=== PATIENT | male | born 1945 | race Two or more races ===

== ENCOUNTER 2021-10-30 08:42 | Outpatient (CLI) | payer OTHER | END 2021-10-30 08:43 | disposition home or self-care (01) | LOC: NUCLEAR 08:42 | PROVIDERS: ATTEND Neuromusculoskeletal Medicine & OMM | DX: G31.9 Degenerative disease of nervous system, unspecified (principal); R41.3 Other amnesia | CPT/HCPCS: 78609; A9552 ==

== ENCOUNTER 2023-05-13 07:41 | Outpatient (CLI) | payer OTHER | END 2023-05-13 07:52 | disposition home or self-care (01) | LOC: TOM 07:41 | PROVIDERS: ATTEND Internal Medicine Gastroenterology | DX: K56.600 Partial intestinal obstruction, unspecified as to cause (principal); Z12.11 Encounter for screening for malignant neoplasm of colon ==

== ENCOUNTER → 2023-05-24 | Outpatient (CLI) | payer OTHER | END | disposition home or self-care (01) | LOC: RX STUDY 07:47 | PROVIDERS: ATTEND Internal Medicine Gastroenterology | DX: K30 Functional dyspepsia (principal) ==